=== PATIENT | female | born 2000 | race Caucasian/White ===

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

== ENCOUNTER 2020-07-10 13:42 | Emergency (ER) | payer OTHER ==
[2020-07-10] MEDS ORDERED: CYCLOBENZAPRINE5 MG PO (16:09)
[2020-07-10] MEDS ORDERED: NAPROSYN500 MG PO (16:09)
== END 2020-07-10 16:16 | disposition home or self-care (01) ==
LOC: ER1 13:42
DX: S16.1XXA Strain of muscle, fascia and tendon at neck level, initial encounter (principal); S39.012A Strain of muscle, fascia and tendon of lower back, initial encounter; S29.012A Strain of muscle and tendon of back wall of thorax, initial encounter; S63.502A Unspecified sprain of left wrist, initial encounter; S53.402A Unspecified sprain of left elbow, initial encounter; S43.402A Unspecified sprain of left shoulder joint, initial encounter; S30.1XXA Contusion of abdominal wall, initial encounter; S70.12XA Contusion of left thigh, initial encounter; S70.11XA Contusion of right thigh, initial encounter; E03.9 Hypothyroidism, unspecified; V43.52XA Car driver injured in collision with other type car in traffic accident, initial encounter; Y92.410 Unspecified street and highway as the place of occurrence of the external cause
CPT/HCPCS: 71046; 72040; 72100; 72170; 73030; 73080; 73110; 84703; 99283